=== PATIENT | male | born 1960 | race Caucasian/White ===

== ENCOUNTER 2016-11-26 04:58 | Emergency (ER) | payer OTHER ==
[~2016-11-26 04:58] MED LIST: ASPI325T PO; AUGM875T PO; GABA100C4 PO; IBUP-232 PO; LIPI80TA PO; METO25TA3 PO
[2016-11-26 04:59] VITALS: BP 139/100; PULSE 81; RESP 16; TEMP 97.7; O2SAT 97
--- NOTE | 2016-11-26 05:27 | PD ---
HPI Chief Complaint: Bite or Sting Time Seen by Provider: 05:22 Travel History International Travel<30 days: No Contact w/Intl Traveler<30days: No Traveled to known affect area: No History of Present Illness HPI Patient comes in complaining of possible spider bite to the dorsal aspect of his right middle finger proximal phalanx that occurred 2 days ago. Patient has been throbbing aching pain since. States started draining on its own. Patient tried squeezing it only made the pain worse. Denies anything making it better. Denies any fevers, nausea, vomiting, numbness or tingling or punching anyone. Patient reports tetanus shot is up to date. Denies any radiation of the pain or decreased range of motion. 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) Diabetes: No Deep Vein Thrombosis: Yes (MULTIPLE) Endocrine: No Gastrointestinal Disorders: No Genitourinary: No Immune Disorder: No Inguinal Hernia: Yes Implanted Vascular Access Dvce: No Musculoskeletal: No Neurologic: Yes (Stroke Apr 2016) Psychiatric: No Reproductive: No Respiratory: No Influenza Vaccination: Yes Past Surgical History Joint Replacement: Yes (R SHOULDER TENDON REPAIR) Other Surgery: Yes (HERNIA REPAIR) Social History Alcohol Use: No Tobacco Use: No Substance Use: No Allergies-Medications (Allergen,Severity, Reaction): Coded Allergies: No Known Allergies (Verified , 11/26/16) Reported Meds & Prescriptions Reported Meds & Active Scripts Active Keflex (Cephalexin) 500 Mg Cap 500 Mg PO Q8H Bactrim DS (Sulfamethoxazole-Trimethoprim) 800-160 Mg Tab 1 Tab PO BID Metoprolol Tartrate 25 Mg Tab 25 Mg PO Q12HR Gabapentin 100 Mg Cap 100 Mg PO TID Lipitor (Atorvastatin Calcium) 80 Mg Tab 80 Mg PO HS Aspirin 325 Mg Tab 325 Mg PO DAILY Review of Systems Except as stated in HPI: all other systems reviewed are Neg Physical Exam Narrative GENERAL: Well-developed, well nourished, in no acute distress, and non-ill appearing. SKIN: Small tender draining wound noted proximal phalanx dorsal aspect of right hand middle finger. There is minimal fluctuation without crepitus. Full range of motion. Neurovascularly intact distally. HEAD: Atraumatic. Normocephalic. EYES: Pupils equal and round. EOMI. No scleral icterus. No injection or drainage. ENT: No nasal bleeding or discharge. Mucous membranes pink and moist. NECK: Trachea midline. Supple. No nuclear rigidity. RESPIRATORY: No accessory muscle use. No respiratory distress. MUSCULOSKELETAL: No obvious deformities. No clubbing. No cyanosis. No edema. Full range of motion. NEUROLOGICAL: Awake and alert. No obvious cranial nerve deficits. Motor grossly within normal limits. Normal speech. PSYCHIATRIC: Appropriate mood and affect; insight and judgment normal. Data Data Last Documented VS Vital Signs Date Time Temp Pulse Resp B/P Pulse Ox O2 Delivery O2 Flow Rate FiO2 11/26/16 04:59 97.7 81 16 139/100 97 Room Air Orders Wound Culture And Gram Stain (11/26/16 05:20) Clindamycin Inj (Cleocin Inj) (11/26/16 05:30) MDM Medical Decision Making Medical Screen Exam Complete: Yes Emergency Medical Condition: Yes Differential Diagnosis Abscess, cellulitis, wound infection, other Narrative Course Patient be discharged on antibiotics for infected wound. Clinical suspicion, diagnosis and care management was discussed. The patient was given signs and symptoms warnings for worsening infection, such as spreading of redness, increasing pain, and/or swelling, associated heat, pus or fever and instructed to return immediately if these signs or symptoms worsen. The patient is to return in 2 days for recheck. Sooner if worsens or as needed. The patient agrees with plan. Patient in no obvious distress upon re-evaluation. Patient was asked if they wanted to speak to my attending, which the patient did not wish to do at this time. Any questions/concerns in reference to patient diagnosis/condition discussed and clarified prior to patient's discharge. Reinforced sheer importance of close follow up with patient's primary physician or primary care clinic or return here in 2 days for recheck. Instructed patient to return to ED immediately, if symptoms return/worsen. Pt showed understanding of above instructions. Further instructions and recommendations were detailed in discharge paperwork. Pt ambulated without difficulty out of ED at discharge. Diagnosis Primary Impression: Wound infection Patient Instructions: Abscess (ED), Acute Wound Care (ED), Cellulitis (ED), General Instructions Additional Instructions: Follow-up with your primary care physician or return here in 2 days for recheck. Take all medication as prescribed. Return to the emergency department if symptoms get worse. Med/Other Pt SpecificInfo: Prescription(s) given Scripts Cephalexin (Keflex)500 Mg [id number] Mg PO Q8H #30 CAP Ref 0 Prov:Espinoza Montelongo MD 11/26/16 Sulfamethoxazole-Trimethoprim (Bactrim DS)800-160 Mg Tab1 Tab PO BID #20 TAB Ref 0 Prov:Espinoza Montelongo MD 11/26/16 Disposition: 01 DISCHARGE HOME Condition: Stable Serjio Albarran Nov 26, 2016 05:27
[2016-11-26] MEDS ORDERED: CEPH-460 PO (05:28)
[2016-11-26] MEDS ORDERED: BACT800T5 PO (05:28)
[2016-11-26] MEDS ORDERED: CLINDAMYCIN PHOS 600 MG/4 ML VIAL IM ONE (05:30)
== END 2016-11-26 05:42 | disposition home or self-care (01) ==
LOC: NEPD 04:58
DX: L08.89 Other specified local infections of the skin and subcutaneous tissue (principal); I87.2 Venous insufficiency (chronic) (peripheral); Z79.82 Long term (current) use of aspirin; Z79.899 Other long term (current) drug therapy; Z86.718 Personal history of other venous thrombosis and embolism; Z86.73 Personal history of transient ischemic attack (TIA), and cerebral infarction without residual deficits
CPT/HCPCS: 86403; 87070; 87186; 96372

== ENCOUNTER 2017-05-29 11:34 | Emergency (ER) | payer OTHER ==
[~2017-05-29 11:34] MED LIST changes: +ASPI-183 PO; -ASPI325T PO; -AUGM875T PO; +BACT800T5 PO; +CEPH-460 PO; -IBUP-232 PO
[2017-05-29 11:36] VITALS: BP 154/100; PULSE 90; RESP 16; TEMP 98.5; O2SAT 98
--- NOTE | 2017-05-29 12:13 | RADRPT ---
EXAM DATE/TIME: 05/29/2017 12:00 [facility] COMPARISON: CHEST PA & LAT, April 23, 2016, 7:49. INDICATIONS : Blurred vision, right carotid artery pain. MEDICAL HISTORY : Stroke. high blood pressure SURGICAL HISTORY : None. ENCOUNTER: Initial ACUITY: 2 days PAIN SCORE: 0/10 LOCATION: Bilateral chest FINDINGS: PA and lateral views of the chest demonstrate the lungs to be symmetrically aerated without evidence of mass, infiltrate or effusion. The cardiomediastinal contours are unremarkable. Osseous structure s are intact. CONCLUSION: No acute disease. Oli Vasquez MD on May 29, 2017 at 12:10 Board Certified Radiologist. This report was verified electronically.
--- NOTE | 2017-05-29 12:49 | RADRPT ---
EXAM DATE/TIME: 05/29/2017 12:30 [facility] COMPARISON: CT BRAIN W/O CONTRAST, April 19, 2016, 10:38. INDICATIONS : Blurry vision and cephalgia. History of recent right occipital lobe infarct seen on MRI. RADIATION DOSE: 34.94 CTDIvol (mGy) MEDICAL HISTORY : Stroke. Cardiovascular disease SURGICAL HISTORY : None. ENCOUNTER: Initial ACUITY: 2 days PAIN SCALE: 5/10 LOCATION: Bilateral cranial TECHNIQUE: Multiple contiguous axial images were obtained of the head. Using automated exposure control and adj ustment of the mA and/or kV according to patient size, radiation dose was kept as low as reasonably a chievable to obtain optimal diagnostic quality images. DICOM format image data is available electro nically for review and comparison. FINDINGS: CEREBRUM: Mild atrophic changes noted with sulcal and ventricular prominence. There is a moderate area of encep halomalacia involving the right occipital lobe from the prior infarct.. No evidence of midline shift , mass lesion, hemorrhage or acute infarction. No extra-axial fluid collections are seen. POSTERIOR FOSSA: The cerebellum and brainstem are intact. The 4th ventricle is midline. The cerebellopontine angle i s unremarkable. EXTRACRANIAL: The visualized portion of the orbits is intact. SKULL: The calvaria is intact. No evidence of skull fracture. CONCLUSION: 1. No acute hemorrhage, mass or evidence of acute infarction. 2. New focal area of encephalomalacia in the right occipital lobe from prior infarct. Oli Vasquez MD on May 29, 2017 at 12:43 Board Certified Radiologist. This report was verified electronically.
[2017-05-29 12:50] LABS: AUTOMATED NEUTROPHIL # 3.3 TH/MM3 (1.8-7.7); BASOPHIL % 0.7 % (0.0-2.0); EOSINOPHIL # 0.2 TH/MM3 (0-0.4); EOSINOPHIL % 2.8 % (0.0-4.0); HEMATOCRIT 45.7 % (39.0-51.0); HEMOGLOBIN 15.4 GM/DL (13.0-17.0); LYMPH % 30.1 % (9.0-44.0); LYMPHOCYTE # 1.7 TH/MM3 (1.0-4.8); MEAN CORPUSCULAR HGB CONC 33.7 % (32.0-36.0); MEAN PLATELET VOLUME 9.8 FL (7.0-11.0); MONO % 7.8 % (0.0-8.0); MONOCYTE # 0.4 TH/MM3 (0-0.9); NEUT % 58.6 % (16.0-70.0); PLATELET COUNT 217 TH/MM3 (150-450); RED BLOOD COUNT 4.81 MIL/MM3 (4.50-5.90); RED CELL DISTRIBUTION WIDTH 14.2 % (11.6-17.2); WHITE BLOOD COUNT 5.6 TH/MM3 (4.0-11.0)
[2017-05-29 12:57] LABS: INTERNATIONAL NORMALIZED RATIO 1.1 RATIO; PROTHROMBIN TIME - PATIENT 10.7 SEC (9.8-11.6)
[2017-05-29 14:18] LABS: ALBUMIN 4.6 GM/DL (3.4-5.0); ALKALINE PHOSPHATASE 92 U/L (45-117); ALT (GPT) 57 U/L (12-78); AST (GOT) 39 U/L (15-37); BICARBONATE 22.6 MEQ/L (21.0-32.0); BLOOD UREA NITROGEN 18 MG/DL (7-18); CALCIUM 9.2 MG/DL (8.5-10.1); CHLORIDE 104 MEQ/L (98-107); CREATININE 1.85 MG/DL (0.60-1.30); GLOMERULAR FILTRATION RATE 38 ML/MIN (>89); GLUCOSE,RANDOM 83 MG/DL (74-106); SODIUM (NA) 139 MEQ/L (136-145); TOTAL BILIRUBIN ADULT 0.9 MG/DL (0.2-1.0); TOTAL PROTEIN 8.4 GM/DL (6.4-8.2); TROPONIN I LESS THAN 0.02 NG/ML (0.02-0.05)
[2017-05-29] MEDS ORDERED: APIX5TAB PO (15:30)
[2017-05-29] MEDS ORDERED: APIXABAN 5 MG TABLET PO ONE (15:30)
--- NOTE | 2017-05-29 15:31 | PD ---
HPI Chief Complaint: Neuro Symptoms/ Deficits Time Seen by Provider: 15:07 Travel History International Travel<30 days: No Contact w/Intl Traveler<30days: No Traveled to known affect area: No History of Present Illness HPI So 57-year-old male presents to the emergency department complaining of headache and right sided neck pain for the past couple days. He does endorse some vision changes. He is a history of a stroke in April 2016, right occipital, with residual left-sided visual field deficits. States he's been improving since his stroke but worse over the past couple days. He was diagnosed with A. fib at that time. He has not been on blood thinners for the past year due to insurance reasons. His a little bit of discomfort in his chest. He otherwise has been feeling well. History Past Medical History Narrative Medical Hypertension CVA, residual left-sided visual field cut A. fib Tetanus Vaccination: < 5 Years Influenza Vaccination: No Social History Alcohol Use: No Tobacco Use: No Allergies-Medications (Allergen,Severity, Reaction): Coded Allergies: *MDRO Multi-Drug Resistant Organism (Verified Adverse Reaction, Unknown, ) MRSA (finger) 11/26/16 Reported Meds & Prescriptions Reported Meds & Active Scripts Active Keflex (Cephalexin) 500 Mg Cap 500 Mg PO Q8H Bactrim DS (Sulfamethoxazole-Trimethoprim) 800-160 Mg Tab 1 Tab PO BID Metoprolol Tartrate 25 Mg Tab 25 Mg PO Q12HR Gabapentin 100 Mg Cap 100 Mg PO TID Lipitor (Atorvastatin Calcium) 80 Mg Tab 80 Mg PO HS Aspirin 325 Mg Tab 325 Mg PO DAILY Review of Systems Except as stated in HPI: all other systems reviewed are Neg Physical Exam Narrative GENERAL: Well-appearing 57-year-old man, no acute distress. SKIN: Focused skin assessment warm/dry. HEAD: Atraumatic. Normocephalic. EYES: Pupils equal and round. No scleral icterus. No injection or drainage. ENT: No nasal bleeding or discharge. Mucous membranes pink and moist. NECK: Trachea midline. No JVD. No carotid bruits. CARDIOVASCULAR: Regular rate and rhythm. No murmur appreciated. RESPIRATORY: No accessory muscle use. Clear to auscultation. Breath sounds equal bilaterally. GASTROINTESTINAL: Abdomen soft, non-tender, nondistended. Hepatic and splenic margins not palpable. MUSCULOSKELETAL: No obvious deformities. No clubbing. No cyanosis. No edema. NEUROLOGICAL: Awake and alert. Left-sided homonymous bryanna-anopsia, no other cranial nerve deficits. Strength full and equal upper and lower extremities. Normal finger to nose. Normal gait. PSYCHIATRIC: Appropriate mood and affect; insight and judgment normal. Data Data Last Documented VS Vital Signs Date Time Temp Pulse Resp B/P (MAP) Pulse Ox O2 Delivery O2 Flow Rate FiO2 05/29/17 15:03 Room Air 05/29/17 11:36 98.5 90 16 154/100 (118) 98 Orders Orders Electrocardiogram (05/29/17 11:45) Prothrombin Time / Inr (Pt) (05/29/17 11:45) Act Partial Throm Time (Ptt) (05/29/17 11:45) Complete Blood Count With Diff (05/29/17 11:45) Comprehensive Metabolic Panel (05/29/17 11:45) Troponin I (05/29/17 11:45) Ct Brain W/O Iv Contrast(Rout) (05/29/17 11:45) Ckmb (Isoenzyme) Profile (05/29/17 11:45) Chest, Pa & Lat (05/29/17 ) CKMB (05/29/17 12:08) CKMB% (05/29/17 12:08) Apixaban (Eliquis) (05/29/17 15:30) Labs Laboratory Tests Test 05/29/17 12:08 White Blood Count 5.6 TH/MM3 Red Blood Count 4.81 MIL/MM3 Hemoglobin 15.4 GM/DL Hematocrit 45.7 % Mean Corpuscular Volume 95.0 FL Mean Corpuscular Hemoglobin 32.0 PG Mean Corpuscular Hemoglobin Concent 33.7 % Red Cell Distribution Width 14.2 % Platelet Count 217 TH/MM3 Mean Platelet Volume 9.8 FL Neutrophils (%) (Auto) 58.6 % Lymphocytes (%) (Auto) 30.1 % Monocytes (%) (Auto) 7.8 % Eosinophils (%) (Auto) 2.8 % Basophils (%) (Auto) 0.7 % Neutrophils # (Auto) 3.3 TH/MM3 Lymphocytes # (Auto) 1.7 TH/MM3 Monocytes # (Auto) 0.4 TH/MM3 Eosinophils # (Auto) 0.2 TH/MM3 Basophils # (Auto) 0.0 TH/MM3 CBC Comment DIFF FINAL Differential Comment Prothrombin Time 10.7 SEC Prothromb Time International Ratio 1.1 RATIO Activated Partial Thromboplast Time 23.6 SEC Blood Urea Nitrogen 18 MG/DL Creatinine 1.85 MG/DL Random Glucose 83 MG/DL Total Protein 8.4 GM/DL Albumin 4.6 GM/DL Calcium Level 9.2 MG/DL Alkaline Phosphatase 92 U/L Aspartate Amino Transf (AST/SGOT) 39 U/L Alanine Aminotransferase (ALT/SGPT) 57 U/L Total Bilirubin 0.9 MG/DL Sodium Level 139 MEQ/L Potassium Level 4.5 MEQ/L Chloride Level 104 MEQ/L Carbon Dioxide Level 22.6 MEQ/L Anion Gap 12 MEQ/L Estimat Glomerular Filtration Rate 38 ML/MIN Total Creatine Kinase 113 U/L Creatine Kinase MB LESS THAN 0.5 NG/ML Troponin I LESS THAN 0.02 NG/ML MDM Medical Decision Making Medical Screen Exam Complete: Yes Emergency Medical Condition: Yes Interpretation(s) My review of EKG: A. fib rate of 73, normal axis, normal intervals, no ischemia. CBC unremarkable. CMP unremarkable. Troponin negative. Coags unremarkable. Head CT: No acute change. Encephalomalacia in the redness of the lobe from prior infarct. Chest x-ray: Negative. Differential Diagnosis CVA, stroke, dissection, recrudescence of old stroke symptoms, TIA, other Narrative Course Medical decision making 57-year-old man, presents of neck pain and stiffness, radiates down into his shoulder and around into his chest. Also with some transient worsening of his vision similar when he had his previous stroke. He is worried about his carotids, is worried that he had another stroke. He looks well. His visual changes max his previous stroke. It may be having her crit as the stroke symptoms. He has not been on blood thinners and certainly is at risk for TIA. Remainder of exam is unremarkable. There is no bruits, and symptoms do not seem consistent with dissection. I reviewed his previous imaging. He had normal carotids about a year or so ago. Biggest benefit for him would come from starting back on his blood thinners. He was on Eliquis previously. We'll restart Eliquis, outpatient follow-up. Diagnosis Primary Impression: Vision impairment Additional Impressions: A-fib Neck pain Additional Instructions: Take Eliquis as prescribed. Return to emergency prior for any worsening vision changes, numbness tingling or weakness, or any other new or worsening symptoms. All with her primary doctor in the next one to 2 days. Med/Other Pt SpecificInfo: Prescription(s) given Scripts Apixaban (Eliquis) 5 Mg Tab 5 MG PO BID for Blood Clot Prevention, #60 TAB 0 Refills Prov: Espinoza Montelongo MD 05/29/17 Disposition: 01 DISCHARGE HOME Condition: Stable Espinoza Montelongo MD May 29, 2017 15:30
[2017-05-29 16:00] VITALS: BP 145/88; PULSE 72; RESP 16; O2SAT 98
--- NOTE | 2017-06-02 15:00 | EKG ---
Date Performed: 05/29/2017 Time Performed: 12:25:18 PTAGE: 57 years EKG: ATRIAL FIBRILLATION ABNORMAL ECG Since PREVIOUS TRACING , no significant change noted PREVIOUS TRACIN04/19/2016 10.19 DOCTOR: Akshat Stroud Interpretating Date/Time 06/02/2017 15:00:06
== END 2017-05-29 16:00 | disposition home or self-care (01) ==
LOC: NEPD 11:34
DX: I69.398 Other sequelae of cerebral infarction (principal); H53.9 Unspecified visual disturbance; I48.91 Unspecified atrial fibrillation; M54.2 Cervicalgia; I10 Essential (primary) hypertension
CPT/HCPCS: 70450; 71046; 80053; 82550; 82552; 84484; 85025; 85610; 85730; 93005; 99285